=== PATIENT | female | born 1940 | race African-American/Black ===

== ENCOUNTER → 2018-11-04 | Outpatient (CLI) | payer OTHER ==
[2013-12-18 15:00] VITALS: BP 135/70
[~2018-11-04] MED LIST: AMLO5TAB10 PO; ASPI-482 PO; CETI10TA30 PO; CHOL500016 PO; GINK120C PO; IRBE300T3 PO; KRIL500C PO; MULT-658 PO; OXYC1TAB15 PO
--- NOTE | 2018-11-04 12:39 | KCIC ---
Bilateral digital screening mammograms with 3-D tomosynthesis: Reason for examination: Routine screening. Comparison is made to previous study dated 06/13/2015. Bilateral mammograms in CC and oblique projections were obtained with 2-D imaging and 3-D tomosynthesis imaging on a [employer] Inspiration unit and reviewed on the workstation. Interpretation was made with the benefit of CAD. The skin and nipples show no abnormalities. No abnormal axillary lymph nodes are seen. The breast parenchyma is predominantly fatty. (Breast density: Category A.) There are small parenchymal densities which are stable. There are no new dominant masses, suspicious calcifications or architectural distortion. Impression: No evidence of malignancy. Recommend routine screening. BI-RAD Category 2: Benign. "Our facility is accredited by the [employer] Mammography Program." This patient's information has been entered into a reminder system for the patient to be notified with the results of her examination and a target date for the next mammogram. Electronically signed by: Galina Adams MD (11/04/2018 12:36 PM) [id number]
--- NOTE | 2018-11-04 15:30 | KCIC ---
Bone densitometry 11/04/2018 11:09 AM Indication: Osteoporosis screening exam Comparison Study: Bone densitometry July 12, 2015. Discussion: Bone Densitometry was performed with dual photon absorption of the lumbar spine and proximal femurs. Lumbar Spine: Bone average density is 0.973g/cm2 for L1-L4. T-Score is -0.7. (Prior T score 0.1) Left proximal femur: Bone average density is 0.718g/cm2. T-Score is -2.5 (prior T score -1.8) IMPRESSION: Osteoporosis, with decreased bone mineral density in the interim since comparison exam. Fracture risk is high. Recommend post therapeutic follow-up bone mineral density measurement. Note: Definitions established by the World Health Organization: Normal: T-score is -1.0 or above. Osteopenia: T-score is between -1.0 and -2.5. Osteoporosis: T-score is -2.5 or below. Electronically signed by: Atul Garcia MD (11/04/2018 3:28 PM) [id number]
== END | disposition home or self-care (01) ==
LOC: KCIC DEXA 10:55
PROVIDERS: ATTEND Internal Medicine
DX: Z12.31 Encounter for screening mammogram for malignant neoplasm of breast (principal); M81.0 Age-related osteoporosis without current pathological fracture
CPT/HCPCS: 77063; 77067; 77080

== ENCOUNTER → 2020-11-05 | Outpatient (CLI) | payer MEDICARE ==
[2013-12-18 15:00] VITALS: BP 135/70
[~2020-11-05] MED LIST changes: +AMLO-186 PO; -AMLO5TAB10 PO; +IRBE300T23 PO; -IRBE300T3 PO
--- NOTE | 2020-11-05 15:14 | KCIC ---
EXAM: DUAL ENERGY X-RAY ABSORPTIOMETRY (DEXA). HISTORY: Postmenopausal screening. FINDINGS: The lowest measured T-score is -2.6 in the right total femur, based on a bone mineral densi ty of 0.61 g/cm^2. Refer to the worksheets for full detail. In comparison with the prior study of 11/04/2018, average bone mineral density at the lumbar spine rodriguez s changed +4.3%. IMPRESSION: Osteoporosis. Bone mineral density yields a T-score of -2.5 or less. Fracture risk is high. FRAX was not calculated. METHODOLOGY: Dual energy x-ray absorptiometry was performed to measure bone mineral density. The foll owing analysis is based on the 2019 Official Positions of the International Society for Clinical Dens itometry: Measurements of the hips and the average of L1-L4 are preferred. When the spine and/or hip cannot be feasibly measured or interpreted, or in the setting of hyperparathyroidism, distal radial bone minera l density may be measured. The lumbar spine T-score is based on the average bone mineral density of L1-L4. In the setting of art ifact or anatomic abnormality, some lumbar levels may be excluded, and the remaining levels used for calculation. A single lumbar level is not used for diagnosis, and if only a single level is available for assessment, another anatomic site will be used to assign a diagnosis. The hip T-score is based on the bone mineral density measurement of the femoral neck or total proxima l femur of either side, whichever is lowest. Bilateral mean values are not used for diagnosis. The forearm T-score is derived from 33% of the distal radius of the nondominant forearm. For postmenopausal and perimenopausal women, and men age 50 or older, of all ethnic groups, T-scores are calculated through comparison of the current measurement with the NHANES III database standard fo r females aged 20-29 years. The lowest T-score of the evaluated anatomic sites is used to a ssign a diagnosis based on the World Health Organization densitometric classification. In premenopausal females and males younger than age 50, a Z-score is calculated based on population s pecific reference data for patient sex and self-reported ethnicity. Electronically signed by: Brian Torres MD (11/05/2020 3:12 PM) [id number]
== END ==
LOC: KCIC DEXA 12:25
PROVIDERS: ATTEND Family Medicine
DX: M81.0 Age-related osteoporosis without current pathological fracture (principal)
CPT/HCPCS: 77080